=== PATIENT | male | born 1975 | race Hispanic/Latino ===

== ENCOUNTER 2016-08-31 03:28 | Emergency (ER) | payer SELFPAY ==
[~2016-08-31] VITALS: Ht 167.6 cm; Wt 74.1 kg
[2016-08-31 03:33] VITALS: BP 146/85; PULSE 102; RESP 19; O2SAT 100
--- NOTE | 2016-08-31 03:55 | ED.REPORT ---
HPI-General Illness Date of Service Aug 31, 2016 ED Provider: Eliot Thornton MD A 41 year old male with a history of methamphetamine use presents to the ED with palpitations onset just prior to arrival, waking him up. Associated symptoms include left arm pain/tingling and shortness of breath. The patient admits to using methamphetamines last night and taking amitriptyline before going to sleep. He denies cough or other symptoms. Nursing Notes Stated Complaint: DIFFICULTY BREATHING/LEFT ARM PAIN Chief Complaint: General Complaint Nursing Notes Reviewed: Yes Allergies: Coded Allergies: No Known Allergies (Unverified , 08/31/16) General Time Seen by MD: 03:51 Chief Complaint Other (Palpitations) Hx Obtained From: Patient Arrived By: Walk-in Sudden in Onset?: Yes Onset Occurred: Just prior to arrival Context of Onset: Amphetamine use Symptom Duration: Since onset Location: : Arm left Quality: Painful (Tingling) Severity: Current: Moderate Severity: Maximum: Moderate Associated with: Reports: Shortness of breath, Denies: Cough Pertinent Negative: Relieved by nothing Context Related History: Reports Drug use/abuse suspected Recent Healthcare: No recent doctor visit Past Medical History Past Medical History None reported Past Surgical History None reported Smoking History Unknown if Ever Smoker Social History Drug Use: Meth Other Social History: Good social support Ambulatory Status Independent Review of Systems + Left arm tingling Full Review of Systems Constitutional: Denies: Fever Respiratory: Reports: Shortness of breath, Denies: Non-productive cough Cardiovascular: Reports: Palpitations GI: Denies: Diarrhea, Vomiting Musculoskeletal: Reports: Extremity pain (Left arm) Complete sys rev & neg: except as marked. Physical Exam Vital Signs Vital Signs Date Time Temp Pulse Resp B/P Pulse Ox O2 Delivery O2 Flow Rate FiO2 08/31/16 06:49 85 21 122/71 98 Room Air 08/31/16 06:19 107 20 122/71 98 Room Air 08/31/16 03:33 36.1 102 19 146/85 100 Room Air Initial VS: Reviewed Head / Eyes: Atraumatic, Normocephalic ENT: Conjunctiva normal, No scleral icterus Neck: Supple, Full range of motion Respiratory: Breath sounds normal, Clear to auscultation, No respiratory distress Cardiovascular: Regular rate & rhythm, Heart sounds normal Abdomen / GI: Soft, Non-tender Skin: Warm, Dry, No cyanosis Neurologic: Alert, Oriented, Nonfocal Psychiatric: Mood/affect normal, Behavior normal, Normal thought content General/Constitutional: Awake, Alert, No acute distress Interpretation & Diagnostics Lab Results Interpretation Result Diagram: 08/31/16 0345 08/31/16 0345 Test 08/31/16 03:45 08/31/16 04:28 08/31/16 05:55 White Blood Count 8.3th/mm3 (3.8-10.1) Red Blood Count 5.10mil/mm3 (4.40-5.80) Hemoglobin 15.3g/dL (13.8-17.2) Hematocrit 45.6% (41.0-50.0) Mean Corpuscular Volume 89.4fL (81-100) Mean Corpuscular Hemoglobin 30.0pg (27.0-35.0) Mean Corpuscular Hemoglobin Concent 33.6% (32.0-37.0) Red Cell Distribution Width 12.0% (12.3-15.4) Platelet Count 283bil/L (150-400) Neutrophils (%) (Auto) 74.1% (40-74) Lymphocytes (%) (Auto) 21.1% (14-46) Monocytes (%) (Auto) 4.0% (4-12) Eosinophils (%) (Auto) 0.5% (0-5) Basophils (%) (Auto) 0.2% (0-3) Hold Purple Top Tube Received (Received) Prothrombin Time 10.5sec (8.1-12.5) Prothromb Time International Ratio 0.98ratio Activated Partial Thromboplast Time 26.8sec (22.8-33.0) Hold Blue Top Tube Received (Received) Sodium Level 137mEq/L (134-144) Potassium Level 4.1mEq/L (3.5-5.2) Chloride Level 99mEq/L (97-108) Carbon Dioxide Level 23mmol/L (18-29) Blood Urea Nitrogen 17mg/dL (6-24) Creatinine 0.87mg/dL (0.76-1.27) Estimat Glomerular Filtration Rate 103mL/min (>59) Glucose Level 125mg/dL (60-99) Calcium Level 10.0mg/dL (8.5-10.1) Magnesium Level 2.0mg/dL (1.6-2.6) Total Bilirubin 0.6mg/dL (0.0-1.2) Aspartate Amino Transf (AST/SGOT) 22U/L (0-50) Alanine Aminotransferase (ALT/SGPT) 27U/L (0-44) Alkaline Phosphatase 130U/L (25-150) Total Protein 7.7g/dL (6.4-8.4) Albumin 4.4g/dL (3.4-5.0) Hold [place] Top Tube Received (Received) Hold Raymond Top Tube Received (Received) Hold Urine Received (Received) Troponin T 0.010ug/L (0.0-0.011) ECG Interpretation ECG Interpretation: Sinus rhythm rate 87 Left atrial enlargement Time: 03:43 Interpreted by: ED physician X-Ray Chest Interpretation Chest Xray Interpretation: Normal chest View: Portable, 1 view Interpretation / Wet Read by: Wet read ED physician Re-Eval/Medical Decision Med Decision/Clinical Course 41-year-old presents with tingling in his left arm and some chest discomfort after ingesting methamphetamine. He is clearly having anxiety among other issues and is very remorseful at having used methamphetamine. His EKG is unremarkable and unchanged over two hour span, and his cardiac enzymes are likewise normal and flat after two hours. There is no evidence of an acute cardiac event associated with his meth use. He is admonished not to use meth and is discharged in stable condition for follow-up with his PCP. Counseled Regarding: Diagnosis, Lab results, Need for follow-up, When/why to return to ED Discharge & Departure Shift Change Sign-Out Response to Therapy: Improved Primary Impression: Non-cardiac chest pain Additional Impression: Methamphetamine abuse Disposition: Home Discharge Condition All VS Reviewed: Yes Condition: Improved Patient Instructions: Chest Pain (ED), Methamphetamine Abuse (ED) Additional Instructions: We do not have any evidence of heart attack at this time. However, methamphetamine can certainly cause heart attack, and you must not do it anymore. Follow-up with your doctor in the office. He may follow-up at residency clinic if you need local coverage. No tenemos ninguna evidencia de ataque al coraz n en mily momento. Sin embargo, la metanfetamina sin lesly puede causar un ataque al coraz n, y no debe hacerlo m s. Sequimiento consu m dico en la oficina. Puede seguir en la cl [facility] si necesita cobertura local. Referrals: NOPCP (PCP) Scribe Attestation Portions of this note were transcribed by Yareli Sykes. I, Dr. Thornton, personally performed the history, physical exam, and medical decision-making; I reviewed and confirmed the accuracy of the information in the transcribed note. Signed by: Elle Candelario, 08/31/2016, 21:05 Eliot Thornton MD Aug 31, 2016 03:55 YARELI SYKES Aug 31, 2016 04:03
[2016-08-31 04:46] LABS: BASOPHILS % (AUTO) 0.2 % (0-3); EOSINOPHILS % (AUTO) 0.5 % (0-5); Mean Corpuscular Volume 89.4 fL (81-100); NEUTROPHILS % (AUTO) 74.1 % (40-74); Platelet Count 283 bil/L (150-400)
[2016-08-31 04:56] LABS: INR 0.98 ratio
[2016-08-31 06:19] VITALS: BP 122/71; PULSE 107; RESP 20; O2SAT 98
[2016-08-31 06:49] VITALS: BP 122/71; PULSE 85; RESP 21; O2SAT 98
--- NOTE | 2016-08-31 08:19 | DRSVH ---
PROCEDURE: X-RAY CHEST ONE VIEW, PORTABLE ([id number]) INDICATIONS: CHEST PAIN, DIFFICULTY BREATHING TECHNIQUE: One view of the chest was acquired. COMPARISON: None. FINDINGS: Surgical changes and devices: None. Lungs and pleura: No pleural effusions or pneumothorax. Lungs are clear. Mediastinum: Mediastinal contours appear normal. Heart size is normal. Bones and chest wall: No suspicious bony lesions. Overlying soft tissues appear unremarkable. IMPRESSION: No acute cardiopulmonary disease. Dictated by: Ariela Shah M.D. on 08/31/2016 at 8:17 Approved by: Ariela Sahh M.D. on 08/31/2016 at 8:17
== END 2016-08-31 06:40 | disposition home or self-care (01) ==
LOC: SED 03:28
DX: R07.89 Other chest pain (principal); F15.10 Other stimulant abuse, uncomplicated
CPT/HCPCS: 36415; 71010; 80053; 83735; 84484; 85025; 85610; 85730; 93005; 96374; 99285; J2060